=== PATIENT | female | born 1935 | race Caucasian/White ===

== ENCOUNTER → 2017-10-21 | Outpatient (CLI) | payer OTHER ==
[~2017-10-21] MED LIST: AMLO2.5T2 PO; ASPI-113 PO; CLTP PO; GLUCOSAMINE/CHOND PO; HYZ/10015 PO; LATA0.009 OPB; LRT5 PO; MELO7.5T7 PO; TRAZ50TA35 PO
--- NOTE | 2017-10-21 16:00 | DIAGNOSTIC IMAGING REPORT ---
MRI OF THE LUMBAR SPINE WITHOUT IV CONTRAST CLINICAL HISTORY: Acquired spondylolisthesis of the lumbar spine. Back pain with lower extremity radiculopathy. COMPARISON STUDY: No priors. TECHNIQUE: MRI of the lumbar spine is performed utilizing various T1 and T2-weighted sequences in the axial and sagittal planes. IV contrast was not administered for this examination. The examination is modestly degraded by motion artifact. FINDINGS: Lumbar spine: Vertebral body height is maintained throughout the lumbar spine. Marrow signal intensity is heterogeneous. There is 6 mm of anterolisthesis at L4-L5. Minimal anterolisthesis is seen at L3-L4. Alignment is otherwise preserved. There is mild hyperlordosis. The transverse and spinous processes appear intact. There is no evidence of spondylolysis. There is a small Schmorl's node in the superior endplate of L1 with minimal marrow edema. Tiny anterior osteophytes are seen throughout. No destructive bony lesion is identified. A small hemangioma is noted in the body of L3. Intervertebral discs: There is degenerative disc desiccation and loss of height throughout the lumbar spine. Loss of height is moderate at most levels. Spinal cord: The visualized spinal cord is normal in morphology and signal intensity. The conus medullaris terminates at the L1-L2 interspace. L1-L2: There is a tiny disc bulge, eccentric to the right. There is no significant acquired compromise of the central canal. The disc bulge may abut the transiting right nerve root. The neural foramina are patent. L2-L3: There is a small posterior disc bulge. There is no significant acquired compromise of the central canal. The neural foramina are patent. Facet arthropathy is of no consequence. L3-L4: There is posterior disc bulge with annular fissure, eccentric to the left. In conjunction with hypertrophy of the ligamentum flavum, there is mild to moderate central canal stenosis at this level with a minimum AP diameter of 7 mm. There is bilateral subarticular stenosis, left greater than right. The disc bulge likely abuts the exiting bilateral L3 and the transiting bilateral L4 nerve roots. Facet arthropathy causes mild bilateral neural foraminal stenosis. There is a right facet joint effusion at this level. L4-L5: There is minimal posterior disc bulge. In conjunction with anterolisthesis and hypertrophy of the ligamentum flavum, there is mild acquired compromise of the central canal at this level with a minimum AP diameter of 9 mm. There is bilateral subarticular stenosis. This likely impinges on the exiting bilateral L4 and the transiting bilateral L5 nerve roots. Facet arthropathy is of no consequence. The neural foramina are patent. L5-S1: There is minimal disc bulge with annular fissure. There is no significant acquired compromise of the central canal. The neural foramina are patent. The disc bulge may abut the transiting left S1 nerve root. Sacrum: The visualized sacrum is normal in morphology and signal intensity. Soft tissues: There is fatty atrophy of the paraspinous musculature. The visualized kidneys demonstrate cortical atrophy. No retroperitoneal lymphadenopathy is identified. IMPRESSION: 1. There is multilevel lumbosacral spondylosis with acquired compromise of the central canal at L3-L4 and L4-L5. See above discussion for detailed level by level analysis. 2. No destructive bony process is seen. 3. There is grade 1 anterolisthesis at L4-L5. Dictated: 10/21/2017 3:37 PM Transcribed: 10/21/2017 4:00 PM [email or web address] Electronically signed by: Terrence Ortiz M.D. 10/21/2017 4:03 PM Dictated Date/Time: 10/21/2017 3:37 PM
== END | disposition home or self-care (01) ==
LOC: C.MRI 14:30
PROVIDERS: ATTEND Family Medicine
DX: M43.17 Spondylolisthesis, lumbosacral region (principal)

== ENCOUNTER → 2018-01-28 | Outpatient (CLI) | payer OTHER ==
[2018-01-28 18:08] LABS: ALKALINE PHOSPHATASE 129 U/L (45-117); ALT/SGPT 117 U/L (12-78); AST/SGOT 92 U/L (15-37); BLOOD UREA NITROGEN 25 mg/dl (7-18); CALCIUM 9.7 mg/dl (8.5-10.1); CARBON DIOXIDE 28 mmol/L (21-32); CREATININE 1.03 mg/dl (0.60-1.20); GLUCOSE 94 mg/dl (70-99); POTASSIUM 3.9 mmol/L (3.5-5.1); SODIUM 139 mmol/L (136-145); TOTAL PROTEIN 7.3 gm/dl (6.4-8.2)
== END | disposition home or self-care (01) ==
LOC: C.LABMFLN 11:33
PROVIDERS: ATTEND Family Medicine
DX: I10 Essential (primary) hypertension (principal)

== ENCOUNTER 2020-10-31 09:16 | Inpatient (IN) ==
--- NOTE | 2020-10-04 15:22 | PAT Medication Instructions ---
Medication Instructions Date of Service October 04, 2020 Home Medications Medication Instructions Recorded alprazolam 0.25 mg tablet See Rx Instructions PO DAILY PRN 04/18/20 #10 tab pramipexole 0.125 mg tablet 0.125 mg PO QPM #90 tab 08/16/20 zolpidem 10 mg tablet 10 mg PO HS PRN #30 tab 09/15/20 alprazolam 0.25 mg tablet See Rx Instructions PO DAILY PRN buspirone 5 mg tablet 10 mg PO DAILY PRN turmeric root extract 500 mg capsule 500 mg PO QAM pramipexole 0.125 mg tablet 0.125 mg PO QPM zolpidem 10 mg tablet 10 mg PO HS PRN [place] Liquid Otc 1 tbsp PO HS acetaminophen [Tylenol Arthritis] 650 - 1,300 mg PO Q12H PRN amlodipine 2.5 mg PO HS cholecalciferol (vitamin D3) 1,000 units PO QPM duloxetine [Cymbalta] 20 mg PO QPM PRN losartan-hydrochlorothiazide 1 tab PO QAM tramadol 50 mg PO Q6H PRN STOP taking 2 weeks before surgery turmeric root extract 500 mg capsule 500 mg PO QAM DO NOT take the morning of surgery losartan-hydrochlorothiazide 1 tab PO QAM Take morning of surgery With a small sip of water, OTHERWISE NOTHING TO EAT OR DRINK AFTER MIDNIGHT: alprazolam 0.25 mg tablet See Rx Instructions PO DAILY PRN (if needed) buspirone 5 mg tablet 10 mg PO DAILY PRN (if needed) acetaminophen [Tylenol Arthritis] 650 - 1,300 mg PO Q12H PRN (okay to take up to 4 hours prior to surgery if needed) tramadol 50 mg PO Q6H PRN (okay to take up to 4 hours prior to surgery if needed) Take evening before surgery alprazolam 0.25 mg tablet See Rx Instructions PO DAILY PRN (if needed) buspirone 5 mg tablet 10 mg PO DAILY PRN (if needed) pramipexole 0.125 mg tablet 0.125 mg PO QPM zolpidem 10 mg tablet 10 mg PO HS PRN (if needed) [place] Liquid Otc 1 tbsp PO HS acetaminophen [Tylenol Arthritis] 650 - 1,300 mg PO Q12H PRN (if needed) amlodipine 2.5 mg PO HS cholecalciferol (vitamin D3) 1,000 units PO QPM duloxetine [Cymbalta] 20 mg PO QPM PRN (if needed) tramadol 50 mg PO Q6H PRN (if needed) Other Notes If you have any questions please call us at [phone] or [phone] or [phone] or [phone]
--- NOTE | 2020-10-05 13:52 | Anesthesiology Consultation ---
Date of Service October 05, 2020 Assessment & Plan (1) Encounter for pre-operative examination: Chart Review Chart Review: Acceptable Risk for Surgery (pending preop Covid testing results ) and Patient seen in Pre Admission Testing Left UE restriction Per PAT appt on 10/05/20, patient denies any recent traveling or large group activities. No known Covid positive contacts or Covid related symptoms. No known Covid infections in the past 90 days. Educated patient to follow up with surgeon's office regarding Covid testing- did educated patient preop Covid testing cannot be done more than 7 days prior to surgery. Educated on importance of self quarantining, social distancing and wearing mask in public both for the patient and household contacts. Teaching & Discussion Pre-Anesthesia Teaching/Discussion Notes: Instructed NPO after midnight before surgery,except medications with 15 cc of water. Medication instructions provided according to the PAT guidelines. History Surgery Operation Date: 10/31/20 11:00 Proposed Procedures p Left Anterior Total Hip Arthroplasty - Jordan Healy DO Height/Weight Height: 5 ft 1 in Weight: 68.2 kg Allergies Allergy/AdvReac Type Severity Reaction Status Date / Time niacinamide Allergy Unknown RASH Verified 10/06/20 12:50 pantothenic acid Allergy Unknown RASH Verified 10/06/20 12:50 pyridoxine Allergy Unknown RASH Verified 10/06/20 12:50 Ydgunor-Bvc-Aky Reductase Allergy Unknown RASH, Verified 10/06/20 12:50 Inhibitor MUSCLE ACHES KNEE INJECTIONS Allergy Unknown RASH Uncoded 10/06/20 12:50 vitamin b complex Allergy Unknown Rash Uncoded 10/06/20 12:50 Medications Home Medications Medication Instructions Recorded Confirmed Last Taken alprazolam 0.25 mg tablet See Rx Instructions PO DAILY PRN 04/18/20 10/06/20 Unknown #10 tab buspirone 5 mg tablet 10 mg PO DAILY PRN tab 04/18/20 10/06/20 Unknown turmeric root extract 500 mg 500 mg PO QAM 04/18/20 10/06/20 Unknown capsule pramipexole 0.125 mg tablet 0.125 mg PO QPM #90 tab 08/16/20 10/06/20 Unknown zolpidem 10 mg tablet 10 mg PO HS PRN #30 tab 09/15/20 10/06/20 Unknown [place] Liquid Otc 1 tbsp PO HS 09/29/20 10/06/20 Unknown acetaminophen [Tylenol Arthritis] 650 - 1,300 mg PO Q12H PRN 09/29/20 10/06/20 Unknown amlodipine 2.5 mg PO HS 09/29/20 10/06/20 Unknown cholecalciferol (vitamin D3) 1,000 units PO QPM 09/29/20 10/06/20 Unknown duloxetine [Cymbalta] 20 mg PO QPM PRN 09/29/20 10/06/20 Unknown losartan-hydrochlorothiazide 1 tab PO QAM 09/29/20 10/06/20 Unknown tramadol 50 mg PO Q6H PRN 09/29/20 10/06/20 Unknown Past Medical History Medical History Cancer HX LEFT BREAST - S/P LEFT BREAST LUMPECTOMY- 2000- S/P XRT, NO CHEMO DOES HAVE LEFT UE RESTRICTION Chronic back pain CKD (chronic kidney disease), stage III STABLE - FOLLOWS WITH NEPHRO ANNUALY Depression Hyperlipidemia NO MEDS-UNABLE TO TOLERATE STATINS Hypertension Osteoarthritis Restless legs STABLE Exercise / Class Metabolic Activity III < 4 Walking/Shop/Light housework (NO CHEST PAIN OR SOB WITH FLAT SURFACE AMBULATION ) Past Family History Family History Father FHx: kidney cancer Lung cancer Sister Family history of reaction to anesthesia PONV Uncle Family history of diabetes mellitus Other Hypertension Past Surgical History Surgical History H/O lumpectomy LEFT BREAST-RADIATION, NO CHEMO-2000 H/O thyroidectomy PARTIAL-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 History of carpal tunnel release History of cataract surgery History of colonoscopy History of hysterectomy History of knee replacement R/L History of repair of rectocele Nausea and vomiting after administration of anesthetic agent S/P dilation and curettage S/P wisdom tooth extraction Past Anesthesia History No Hx of Anesthesia Complications (WITH EXCEPTION TO PONV) and No Family Hx of Anesthesia Complications History of PONV History of PONV and Hx of Motion Sickness (IN BOATS ) Social History Smoking Status: Never smoker Do You Dip or Chew Tobacco: No Hx Alcohol Use: No Hx Substance Use: No Review of Systems Occ cough- secondary to post nasal drip- chronic and stable Patient denies chest pain, shortness of breath, dyspnea on exertion, reflux, wheezing, palpitations. No hx of seizures, stroke, NH, apnea/snoring. No hx of blood clots or blood transfusions Physical Exam Vital Signs VITALS BP 148/74 (manually) P 78 TEMP 97.9 SP02 98% RESP 16 Constitutional no acute distress ENMT Mouth: no TMJ clicking Thyromental Distance: > or= 3.5 Finger Breadths (3.5) Mallampati Class: III Partial plate on top Missing bottom molars Neck + limited neck extension (mild to moderate ) Respiratory normal respiratory effort; no respiratory distress Auscultation: lungs clear to auscultation bilaterally; no wheezes Cardiovascular Rate/Rhythm: regular rate and regular rhythm Heart Sounds: no murmur Vessels: no carotid bruit Musculoskeletal Spine: no pain with cervical ROM Extremities: extremities normal to inspection Psychiatric Orientation: alert Testing Laboratory Results 10/05/20 14:08 10/05/20 14:08 PT 10.1 Seconds (9.0-12.0) 10/05/20 14:08 INR 1.0 (0.9-1.1) 10/05/20 14:08 APTT 26.3 Seconds (21.0-31.0) 10/05/20 14:08 Hemoglobin A1c 5.9 % (4.5-5.6) H 10/05/20 14:08 Urine Color Yellow 10/05/20 14:08 Urine Appearance Clear (Clear) 10/05/20 14:08 Urine pH 5.0 (4.5-7.5) 10/05/20 14:08 Ur Specific [place] 1.016 (1.000-1.030) 10/05/20 14:08 Urine Protein Negative (Negative) 10/05/20 14:08 Urine Glucose (UA) Negative (Negative) 10/05/20 14:08 Urine Ketones Negative (Negative) 10/05/20 14:08 Urine Nitrite Negative (Negative) 10/05/20 14:08 Ur Leukocyte Esterase Negative (Negative) 10/05/20 14:08 Blood Type AB Negative 10/05/20 14:08 Antibody Screen NEGATIVE 10/05/20 14:08 Electrocardiogram Date: 10/05/20 Findings: + NSR @ (70bpm) Normal EKG per cardio. Chest X-Ray Date: 10/05/20 Findings: + NAD Stress Test Date: 06/04/16 Type: exercise (ECHO) Resting EF: 63% Resting LV Function: normal Resting RWMA: + none Valvular Disease: no significant valvular disease Exercise ECHO exam is normal without EKG or ECHO evidence of inducible ischemia. MPHR= 85%. 4.4 METS achieved. Resting ECHO shows Grade I diastolic dysfunction.
--- NOTE | 2020-10-05 14:48 | XRay Report ---
XR chest Pre-admission PA/Lat HISTORY: 85 years-old Female pat chronic degenerative joint disease COMPARISON: Chest radiographs 01/29/2012 TECHNIQUE: PA and lateral views of the chest FINDINGS: Cardiac mediastinal and hilar silhouettes are within normal limits. No pneumothorax, pleural effusion , airspace consolidation or overt pulmonary edema. Degenerative changes of the shoulders and spine. I sahil upper abdomen is unremarkable. IMPRESSION: No acute process. ACT 112: Negative or not required by law. The above report was generated using voice recognition software. It may contain grammatical, syntax o r spelling errors. Electronically signed by: Mike Rai M.D. 10/05/2020 2:46 PM
[2020-10-05 14:57] LABS: Basophils # (auto) 0.06 K/uL (0-0.2); Basophils % (auto) 0.7 %; Eosinophils # (auto) 0.16 K/uL (0-0.5); Hematocrit (blood only) 40.7 % (37-47); Immature Granulocytes # (auto) 0.01 K/uL (0.00-0.02); Immature Granulocytes % (auto) 0.1 %; Lymphocytes # (auto) 1.73 K/uL (1.2-3.4); Lymphocytes % (auto) 21.6 %; Mean Corpuscular Hemoglobin 30.7 pg (25-34); Mean Corpuscular Hgb Conc 31.9 g/dL (32-36); Mean Corpuscular Volume 96.2 fL (80-100); Mean Platelet Volume 10.5 fL (7.4-10.4); Monocytes # (auto) 0.47 K/uL (0.11-0.59); Monocytes % (auto) 5.9 %; Neutrophils # (auto) 5.58 K/uL (1.4-6.5); Neutrophils % (auto) 69.7 %; Platelet Count 345 K/uL (130-400); RDW Coefficient of Variation 13.1 % (11.5-14.5); RDW Standard Deviation 45.8 fL (36.4-46.3); Red Blood Count 4.23 M/uL (4.2-5.4); White Blood Count 8.01 K/uL (4.8-10.8)
[2020-10-05 15:12] LABS: Partial Thromboplastin Time 26.3 Seconds (21.0-31.0); Prothrombin Time 10.1 Seconds (9.0-12.0)
[2020-10-05 15:15] LABS: Appearance Urine Clear (Clear); Bilirubin Urine Negative (Negative); Blood Urine Negative (Negative); Color Urine Yellow; Glucose Urine UA Negative (Negative); Ketones Urine Negative (Negative); Leukocyte Esterase Urine Negative (Negative); Nitrite Urine Negative (Negative); Protein Urine Negative (Negative); Specific Gravity Urine 1.016 (1.000-1.030); Urobilinogen Urine Negative (Negative)
[2020-10-05 16:11] LABS: Albumin Level 3.9 gm/dl (3.4-5.0); BUN Creatinine Ratio 26.5 (10-20); Creatinine Clr Calc Pharmacy 38.8 ml/min; Est GFR (African American) 62.6; Potassium 3.7 mmol/L (3.5-5.1)
[2020-10-06 05:46] LABS: Estimated Average Glucose 123 mg/dl; Hemoglobin A1C 5.9 % (4.5-5.6)
--- NOTE | 2020-10-06 22:11 | Electrocardiogram Report ---
Test Reason : Blood Pressure : / mmHG Vent. Rate : 070 BPM Atrial Rate : 070 BPM P-R Int : 192 ms QRS Dur : 086 ms QT Int : 398 ms P-R-T Axes : 067 067 046 degrees QTc Int : 429 ms Normal sinus rhythm Normal ECG When compared with ECG of 29-JAN-2012 12:32, No significant change was found Confirmed by Lv Maldonado ([id number]) on 10/06/2020 10:10:23 PM Referred By: Jordan Healy Confirmed By:Lv Maldonado
--- NOTE | 2020-10-28 21:33 | History & Physical Report ---
Date of Service October 31, 2020 Assessment & Plan (1) Degenerative joint disease of left hip: I have indicated the patient for left total hip replacement. The risks, benefits and complications of surgery were explained to the patient which include but not limited to infection, acute blood loss, DVT/PE, injury to nerves, vessels, bone, soft tissue, arthrofibrosis, chronic pain, failure of the prosthesis, hip dislocation, leg length discrepancy, need for additional surgery, cardiac and pulmonary events and . The patient wished to proceed with surgery and informed consent was obtained at this time. We will plan for 81mg ASA BID post-operatively for DVT prophylaxis. Upon discharge the patient will be discharged home with home health services. Appropriate clearances by PCP were obtained. History of Present Illness Chief Complaint: Left hip pain/DJD Primary Care Provider: Joseluis Garner DO The patient is a 85 year old female who presents with complaints of severe left hip pain and DJD. The patient has failed outpatient conservative treatments to this point which included IA corticosteroid injection, activity modification, ho me exercise/walking program. Unable to take NSAIDs due to CKD. The patient's pain and limited function have progressed to the point where they severely hinder their activities of daily living and they no longer tolerate exercise programs. They are requesting to proceed with total hip replacement surgery. Allergies Allergy/AdvReac Type Severity Reaction Status Date / Time niacinamide Allergy Unknown RASH Verified 10/31/20 09:46 pantothenic acid Allergy Unknown RASH Verified 10/31/20 09:46 pyridoxine Allergy Unknown RASH Verified 10/31/20 09:46 Ojqckgk-Vfr-Eyc Reductase Allergy Unknown RASH, Verified 10/31/20 09:46 Inhibitor MUSCLE ACHES KNEE INJECTIONS Allergy Unknown RASH Uncoded 10/31/20 09:46 vitamin b complex Allergy Unknown Rash Uncoded 10/31/20 09:46 Home Medications Medication Instructions Recorded Confirmed Type alprazolam 0.25 mg tablet See Rx Instructions PO DAILY PRN 04/18/20 10/31/20 Rx #10 tab buspirone 5 mg tablet 10 mg PO DAILY PRN tab 04/18/20 10/31/20 History turmeric root extract 500 mg 500 mg PO QAM 04/18/20 10/31/20 History capsule pramipexole 0.125 mg tablet 0.125 mg PO QPM #90 tab 08/16/20 10/31/20 Rx zolpidem 10 mg tablet 10 mg PO HS PRN #30 tab 09/15/20 10/31/20 Rx [place] Liquid Otc 1 tbsp PO HS 09/29/20 10/31/20 History acetaminophen [Tylenol Arthritis] 650 - 1,300 mg PO Q12H PRN 09/29/20 10/31/20 History amlodipine 2.5 mg PO HS 09/29/20 10/31/20 History cholecalciferol (vitamin D3) 1,000 units PO QPM 09/29/20 10/31/20 History duloxetine [Cymbalta] 20 mg PO QPM PRN 09/29/20 10/31/20 History losartan-hydrochlorothiazide 1 tab PO QAM 09/29/20 10/31/20 History tramadol 50 mg PO Q6H PRN 09/29/20 10/31/20 History diclofenac sodium 1 % topical gel 2 g TOPICAL QID 10/13/20 10/31/20 History camphor-methyl salicyl-menthol 1 patch TOPICAL BID PRN 10/31/20 10/31/20 History [Salonpas] Past Med/Surg History Medical History Cancer HX LEFT BREAST - S/P LEFT BREAST LUMPECTOMY- 2000- S/P XRT, NO CHEMO DOES HAVE LEFT UE RESTRICTION Chronic back pain Chronic kidney disease, stage 3a CKD (chronic kidney disease), stage III STABLE - FOLLOWS WITH NEPHRO ANNUALY Depression Hyperlipidemia NO MEDS-UNABLE TO TOLERATE STATINS Hypertension Osteoarthritis Restless legs STABLE Surgical History H/O lumpectomy LEFT BREAST-RADIATION, NO CHEMO-2000 H/O thyroidectomy PARTIAL-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 History of carpal tunnel release History of cataract surgery History of colonoscopy History of hysterectomy History of knee replacement R/L History of repair of rectocele Nausea and vomiting after administration of anesthetic agent S/P dilation and curettage S/P wisdom tooth extraction Family History Father FHx: kidney cancer Lung cancer Sister Family history of reaction to anesthesia PONV Uncle Family history of diabetes mellitus Other Hypertension Social History Smoking Status: Never smoker Second Hand Exposure: No; Do You Dip or Chew Tobacco: No; Hx Alcohol Use: No Hx Substance Use: No Preferred Language: Russian Communication Ability: Effective Architecture Technician Required: No Beliefs That Will Affect Care: None marital status: Current Living Situation: Spouse current occupational status: retired Other Information That Helps Us Care for You: No Feels Safe at Home: Yes Safety Concerns: Feels Safe At This Time Childhood Exposure to Second-Hand Smoke: No caffeine: Yes (coffee, tea ) Dental Care, Regularly: Yes Physical Activity Frequency: Daily Seatbelt Use: always Assistive Devices: Denture - Upper, Glasses and Walker Review of Systems Review of Systems: All systems reviewed & are unremarkable except as noted in HPI & below Constitutional: as per Subjective / HPI Physical Exam Physical Exam: LLE NVSI +EHL/FHL/TA/GS SILT grossly, +2 DP pulse, compartments soft NT, limited painful ROM of the hip, antalgic gait. Constitutional: WD/WN, vitals as above Eyes: PERRL, conjunctivae normal, anicteric sclerae ENMT: external ear and nose normal, oropharynx normal Neck: trachea midline, no thyromegaly Respiratory: normal respiratory effort, lungs clear to auscultation Cardiovascular: RRR, no murmur, no edema Gastrointestinal (Abdomen): normal bowel sounds, soft, nontender, no he patosplenomegaly Musculoskeletal: no cyanosis or clubbing, extremities motor strength 5/5 Skin: no rashes, warm and dry Neurologic: patellar DTR's 2+ bilat, sensation intact Psychiatric: A+Ox3, euthymic affect Lymphatic: no cervical or axillary lymphadenopathy
[~2020-10-31 09:16] MED LIST changes: +ACETAMINOPHEN 500 MG TAB PO SCH; -AMLO2.5T2 PO; -ASPI-113 PO; +BUPIVACAINE 0.5 % 5 MG/1 ML PF 10ML VIAL ONE; -CLTP PO; +CeleBREX 200 MG CAP PO SCH; +FAMOTIDINE 20 MG TAB PO SCH; +GABAPENTIN 300 MG CAP PO SCH; -GLUCOSAMINE/CHOND PO; -HYZ/10015 PO; -LATA0.009 OPB; +LR 500ML BOLUS, THEN 15ML/HR IV SCH; -LRT5 PO; -MELO7.5T7 PO; +METOCLOPRAMIDE HCL 10 MG TABLET PO SCH; +ROPIVACAINE 0.5% HCL/PF 150 MG, BUPIVACAINE 0.75% MPF 20 ML, EPINEPHrine 30MG/30ML (OR ... INSTIL SCH; +TRANEXAMIC ACID 1,000 MG **IV Intra-op IV SCH; +TRANEXAMIC ACID 1,000 MG **IV Pre-op IV SCH; -TRAZ50TA35 PO; +dexAMETHasone 4 MG TAB PO SCH
[2020-10-31] MEDS ORDERED: PROPOFOL IV EMULSION 10 MG/ML 20 ML VIAL IV ONE (10:20)
[2020-10-31] MEDS ORDERED: fentaNYL citrate 100 MCG/2 ML VIAL ONE (10:20)
[2020-10-31] MEDS ORDERED: MIDAZOLAM HCL 1 MG/ML 2ML VIAL ONE (10:20)
--- NOTE | 2020-10-31 11:32 | History & Physical Bridge Note ---
Date of Service October 31, 2020 History & Physical Bridge Note I have examined the patient, reviewed the History & Physical and in the interval since the performance of the History & Physical I have noted the following changes of clinical significance: no changes noted
[2020-10-31] MEDS ORDERED: ORTHO JOINT ANESTHETIC ONE (11:39)
[2020-10-31] MEDS: ceFAZolin 1000MG 1,000 MG/7.5 ML SYR IV SCH ×3 (12:04→21:04)
--- NOTE | 2020-10-31 13:28 | Post Operative Brief Note ---
Immediate Post Op Note v1 Date of Surgery October 31, 2020 Pre & Post Diagnosis Operation Date: 10/31/20 11:40 Pre-Op Diagnosis: Degenerative joint disease of left hip Post-Op Diagnosis: Degenerative joint disease of left hip I identified the patient and participated in the time-out.: Yes Procedure Operation Date: 10/31/20 11:40 Actual Procedures p Left Total Hip Arthroplasty, Posterior Approach(Left) - Jordan Healy DO Surgeon Jordan Healy DO Incinerator Operator Stef Johnson Estimated Blood Loss 175 Findings Consistent with Post-Op Diagnosis Fluids See anesthesia report Specimens Femoral head Anesthesia Type Spinal MAC Complications none Disposition Disposition: Recovery Room Overlapping Procedure I was present for: the critical portions of procedure. I was immediately available: during the entire case. Back up surgeon: was not required during procedure.
--- NOTE | 2020-10-31 13:30 | Operative Report ---
Post Operative Report Pre & Post Diagnosis Operation Date: 10/31/20 11:40 Pre-Op Diagnosis: Degenerative joint disease of left hip Post-Op Diagnosis: Degenerative joint disease of left hip I identified the patient and participated in the time-out.: Yes Procedure Operation Date: 10/31/20 11:40 Actual Procedures p Left Total Hip Arthroplasty, Posterior Approach(Left) - Jordan Healy DO Surgeon Jordan Healy DO Senior Financial Accountant Stef Johnson Estimated Blood Loss 175 Findings Consistent with Post-Op Diagnosis Fluids See anesthesia report Specimens Femoral head Anesthesia Type Spinal MAC Complications none Disposition Disposition: Recovery Room Indications The patient is a 85-year-old female who presents with severe progressive left hip DJD who has failed outpatient conservative treatments. I indicated the patient for a total hip replacement and the risks and benefits were explained in detail which included but not limited to infection, bleeding, blood clot, damage to surrounding bone, nerves, vessels, soft tissue, hip dislocation, failure of the prosthesis, leg length discrepancy, need for additional surgery and . The patient agreed to proceed with replacement of the hip and informed consent was obtained. Appropriate clearances were obtained. Description of Procedure COMPONENTS USED: Goldie bio hip system: Acetabulum size 50 osteo-Ti G7, femur size 10 standard reduced offset, femoral head 36-3.5, liner 50x36, acetabular screw 25 mm x 1. Following induction of adequate spinal anesthesia, the patient was transferred to the OR table and placed in lateral decubitus position with right hip down. The left hip was prepped and draped in the typical sterile fashion. A timeout was performed, patient identified and site bre confirmed. Appropriate antibiotics were given. A standard posterolateral/Jacobo-Langenbeck incision was made. Subcutaneous tissue was sharply dissected. Electrocautery was utilized for hemostasis. The fascia was incised throughout the length of the wound and retracted with the Charnley retractor. The bursa was taken down and the short external rotators were identified. The piriformis was tagged with #1 Vicryl. The short external rotators and capsule were divided from the posterior aspect of the femur using electrocautery. The posterior capsule was tagged with #1 Vicryl. Both external rotators and posterior capsule were swept posterior and protected, along with protecting the sciatic nerve. The hip was dislocated by flexion and internally rotation in a controlled manner and exposure of the femoral neck was gained with an old-style Hohmann and a blunt cobra retractor. A femoral cutting guide was utilized for making the appropriate level femoral ne ck cut with reciprocating saw. The femoral head was removed, measured and reserved on the back table. Next, attention was turned to the acetabulum. A posterior and anterior offset retractor was placed to gain adequate exposure. Acetabular labrum as well as posterior capsule elements were removed using electrocautery and forceps. Fovea centralis was cleared of all soft tissue. Sequential reaming was performed starting at 42 mm and carried up to a 49 mm and decision was made to proceed with impaction of a 50 mm G7 Osteo-Ti cup. This was impacted and held using a single 25 mm acetabular screw. The trial acetabular liner was placed at this time. Next, attention was turned to the proximal femur where a Bovie and pickup was used to further clear short external rotators from their insertion on the femur. Box osteotome and canal finder was used to gain access to the femoral canal and the lateral reamer on power was used to further open the proximal lateral canal. Sequentially rasping was carried up to a 10 which gave good fit and fill of the proximal femur. A trial reduction was carried out with a standard reduced offset femoral neck component a 36-3.5 mm femoral head. The trial reduction was stable in all degrees of rotation with no [id number] impingement. The hip was dislocated, trial components were removed and access to the acetabulum was re-established. The trial liner was removed and the cup was irrigated to ensure all debris was removed. The final acetabular liner was inserted and properly seated in the cup. Access to the femur was once more gained and the size 10 femoral stem with standard reduced offset was impacted into position. The hip was once more assessed with the 36-3.5 mm femoral head. Stability was accessed and found to be excellent with equal leg lengths. The hip was dislocated for the last time and the final 36-3.5 ceramic femoral head was impacted in place and the hip was reduced. Range of motion was checked once again and found to be stable. A Betadine soak was performed. After 3 minutes, the hip was once more irrigated with copious sterile saline solution with bacitracin. The johana-incisional soft tissue was injected utilizing [place] ortho mix which includes a combination of Ropivicaine 0.5% 150mg, Bupivicaine 0.5%/Epinephrine 1:200,000 30ml, Toradol 30mg, Dexamethasone 4mg, Ketamine 10mg, Clonidine 100mcg and NSS 30ml Orthomix solution. The piriformis, external rotators and capsule were repaired to the greater trochanter through bone tunnels using #5 FiberWire. The fascia was closed using #1 Vicryl, subcutaneous tissue was closed using 2-0 Vicryl, and skin was closed with iván. A sterile dry dressing was applied which included gema incisional VAC. The patient tolerated the procedure well and was transported to PACU in stable condition. Due to the complex nature of the procedure, the entire surgery was performed with the operational assistance of Stef Johnson PA-C. The addictions counselor assistant, under direct supervision, was involved in the actual performance of all aspects of the surgical procedure including patient positioning, hemostasis, tissue retraction, instrument management and wound closure. I attest to the content of the Intraoperative Record and any orders documented therein. Any exceptions are noted below.
[2020-10-31] MEDS ORDERED: ePHEDrine sulfate 50 MG/ML AMP IV PRN (14:07)
[2020-10-31] MEDS ORDERED: ATROPINE SULFATE 0.1 MG/ML 10ML SYR IV PRN (14:07)
--- NOTE | 2020-10-31 14:23 | XRay Report ---
XR hip 1V LT w pelvis HISTORY: 85 years-old Female IN PACU - A/P PELVIS and LATERAL HIP left hip total joint arthroplasty COMPARISON: None TECHNIQUE: AP view of the pelvis with crosstable lateral view of the left hip FINDINGS: Moderate right hip osteoarthritis. Left hip total joint arthroplasty. Expected postoperative soft tis emmy swelling with deep tissue air lateral skin iván. No acute fracture or unexpected opaque foreig n body. IMPRESSION: Left hip total joint arthroplasty with expected postoperative changes. ACT 112: Negative or not required by law. The above report was generated using voice recognition software. It may contain grammatical, syntax o r spelling errors. Electronically signed by: Amado Rai M.D. 10/31/2020 2:22 PM
--- NOTE | 2020-10-31 16:12 | Anesthesiology Progress Note ---
Date of Service October 31, 2020 Anesthesia Post Procedure Vital Signs Vital Signs: Temp Pulse Pulse Resp BP BP Pulse Ox 10/31/20 16:00 74 24 135/63 95 10/31/20 15:50 36.4 C L 75 20 136/63 96 10/31/20 15:40 72 20 140/60 95 10/31/20 15:30 35.5 C L 65 16 137/69 96 10/31/20 15:20 65 16 137/66 96 10/31/20 15:10 68 20 139/78 97 10/31/20 15:00 66 20 127/64 95 10/31/20 14:50 74 20 143/64 H 95 10/31/20 14:40 75 18 139/79 96 10/31/20 14:30 71 20 141/61 H 97 10/31/20 14:20 70 16 142/61 H 98 10/31/20 14:10 67 14 139/63 98 10/31/20 14:00 71 16 126/66 100 10/31/20 13:55 75 19 137/58 L 100 10/31/20 13:49 36.0 C L 74 14 120/59 L 97 10/31/20 10:02 36.6 C 92 H 20 143/74 H 99 Transfer of Care Handoff Completed per policy Notes Mental Status: alert / awake / arousable Patient Amnestic to Procedure: Yes Nausea / Vomiting: adequately controlled Pain: adequately controlled Airway Patency, RR, SpO2: stable & adequate BP & HR: stable & adequate Hydration State: stable & adequate Neuraxial Anesthesia: was administered and sensory block is resolving Anesthetic Complications: no major complications apparent
--- NOTE | 2020-10-31 16:55 | Orthopedic Progress Note ---
Date of Service October 31, 2020 Assessment & Plan (1) Degenerative joint disease of left hip: Status post left total hip arthroplasty -Ancef x24 -DVT prophylaxis: SCDs, teds, 81 mg ASA twice daily -Weight-bear as tolerates left lower extremity -PT/OT -Postoperative x-ray demonstrates a well aligned well fixed prosthesis without fracture or dislocation. -A.m. labs -DC plan Admission and Anticipated Discharge Date Admission Date: October 31, 2020 Subjective Post Operative Progress Note Patient seen sitting up in bed, comfortable, denies complaints, pain well controlled, no acute issues. Review of Systems Review of Systems: All systems reviewed & are unremarkable except as noted in HPI & below Constitutional: as per Subjective / HPI Physical Exam Physical Exam: LLE NVSI +EHL/FHL/TA/GS SILT grossly, +2 DP pulse, compartments soft NT, dressing cdi. Results & Data ([facility]) Vital Signs (Past 12 Hours) Vital Signs Temp Pulse Pulse Resp BP BP Pulse Ox 10/31/20 16:00 74 24 135/63 95 10/31/20 15:50 36.4 C L 75 20 136/63 96 10/31/20 15:40 72 20 140/60 95 10/31/20 15:30 35.5 C L 65 16 137/69 96 10/31/20 15:20 65 16 137/66 96 10/31/20 15:10 68 20 139/78 97 10/31/20 15:00 66 20 127/64 95 10/31/20 14:50 74 20 143/64 H 95 10/31/20 14:40 75 18 139/79 96 10/31/20 14:30 71 20 141/61 H 97 10/31/20 14:20 70 16 142/61 H 98 10/31/20 14:10 67 14 139/63 98 10/31/20 14:00 71 16 126/66 100 10/31/20 13:55 75 19 137/58 L 100 10/31/20 13:49 36.0 C L 74 14 120/59 L 97 10/31/20 10:02 36.6 C 92 H 20 143/74 H 99
[2020-10-31] MEDS ORDERED: METOCLOPRAMIDE HCL INJ 5 MG/ML 2 ML VIAL IV PRN (17:11)
[2020-10-31] MEDS ORDERED: ONDANSETRON INJ 2 MG/ML 2 ML VIAL IV PRN (17:11)
[2020-10-31] MEDS ORDERED: busPIRone 5 MG TAB PO PRN (17:11)
[2020-10-31] MEDS ORDERED: MAGNESIUM HYDROXIDE SUSP 30 ML UDC PO PRN (17:11)
[2020-10-31] MEDS ORDERED: bisacodyL 10 MG SUPP PR PRN (17:11)
[2020-10-31] MEDS ORDERED: NALOXONE HCL 0.4 MG/1 ML VIAL/CARP IV PRN (17:11)
[2020-10-31] MEDS ORDERED: ZOLPIDEM TARTRATE 10 MG TAB PO PRN (17:11)
[2020-10-31] MEDS ORDERED: HYDROmorphone INJ 0.5 MG/0.5 ML SYR IV PRN (17:11)
[2020-10-31] MEDS: SODIUM CHLORIDE 0.9% 1000ML 1,000 ML IV SCH (18:45)
[2020-10-31] MEDS ORDERED: PRAMIPEXOLE DIHYDROCHLO 0.25 MG TAB PO SCH (19:00)
[2020-10-31] MEDS: DOCUSATE SODIUM 100 MG CAP PO SCH (20:16)
[2020-10-31] MEDS ORDERED: SENNA 8.6 MG TAB PO SCH (21:00)
[2020-10-31] MEDS ORDERED: amLODIPine BESYLATE 5 MG TAB PO SCH (21:00)
[2020-10-31] MEDS: HYDROCODONE/ACETAMOPHEN 5/325MG TAB PO PRN (22:23)
[2020-11-01] MEDS: SODIUM CHLORIDE 0.9% 1000ML 1,000 ML IV SCH (04:35)
[2020-11-01] MEDS: ceFAZolin 1000MG 1,000 MG/7.5 ML SYR IV SCH (04:35)
[2020-11-01 06:33] LABS: Hematocrit (blood only) 33.4 % (37-47); Immature Granulocytes # (auto) 0.02 K/uL (0.00-0.02); Immature Granulocytes % (auto) 0.2 %; Lymphocytes % (auto) 6.5 %; Mean Corpuscular Hemoglobin 31.3 pg (25-34); Mean Corpuscular Hgb Conc 32.9 g/dL (32-36); Mean Corpuscular Volume 95.2 fL (80-100); Mean Platelet Volume 10.1 fL (7.4-10.4); Monocytes # (auto) 0.73 K/uL (0.11-0.59); Monocytes % (auto) 6.8 %; Neutrophils # (auto) 9.27 K/uL (1.4-6.5); Neutrophils % (auto) 86.5 %; Platelet Count 303 K/uL (130-400); RDW Coefficient of Variation 13.2 % (11.5-14.5); RDW Standard Deviation 45.8 fL (36.4-46.3); Red Blood Count 3.51 M/uL (4.2-5.4); White Blood Count 10.72 K/uL (4.8-10.8)
[2020-11-01 07:11] LABS: BUN Creatinine Ratio 30.3 (10-20); Calcium 8.7 mg/dl (8.5-10.1); Est GFR (African American) 43.9; Est GFR (Non-African American) 37.9; Potassium 3.9 mmol/L (3.5-5.1)
[2020-11-01] MEDS: DOCUSATE SODIUM 100 MG CAP PO SCH (08:10)
[2020-11-01] MEDS ORDERED: MULTIVITAMIN TAB PO SCH (09:00)
[2020-11-01] MEDS ORDERED: LOSARTAN/HCTZ 50/12.5MG TAB PO SCH (09:00)
[2020-11-01] MEDS ORDERED: ASPIRIN 81 MG ECTAB PO SCH (09:00)
--- NOTE | 2020-11-01 09:34 | Orthopedic Progress Note ---
Date of Service November 01, 2020 Assessment & Plan (1) Degenerative joint disease of left hip: Status post left total hip arthroplasty POD#1 -Ancef x24 -DVT prophylaxis: SCDs, teds, 81 mg ASA twice daily -Weight-bear as tolerates left lower extremity -PT/OT -Postoperative x-ray demonstrates a well aligned well fixed prosthesis without fracture or dislocation. -A.m. labs - as above, hgb 11.0 -DC plan - home with Admission and Anticipated Discharge Date Admission Date: October 31, 2020 Subjective Post Operative Progress Note Patient seen sitting up in bed, comfortable, denies complaints, pain well controlled, no acute issues. Denies F/C/N/V/SOB/CP. Review of Systems Review of Systems: All systems reviewed & are unremarkable except as noted in HPI & below Constitutional: as per Subjective / HPI Physical Exam Physical Exam: LLE NVSI +EHL/FHL/TA/GS SILT grossly, +2 DP pulse, compartments soft NT, dressing cdi. Constitutional: WD/WN, vitals as above Results & Data ([facility]) Vital Signs (Past 12 Hours) Vital Signs Temp Pulse Resp BP Pulse Ox 11/01/20 07:14 36.6 C 74 16 118/67 98 11/01/20 03:59 36.4 C L 66 16 127/75 98 10/31/20 22:57 36.9 C 70 16 122/77 97 Laboratory Results 11/01/20 11/01/20 10/31/20 Range/Units 05:59 05:59 Unknown WBC 10.72 (4.8-10.8) K/uL RBC 3.51 L (4.2-5.4) M/uL Hgb 11.0 L (12.0-16.0) g/dL Hct 33.4 L (37-47) % MCV 95.2 (80-100) fL MCH 31.3 (25-34) pg MCHC 32.9 (32-36) g/dL RDW Std Deviation 45.8 (36.4-46.3) fL RDW Coeff of Nicolasa 13.2 (11.5-14.5) % Plt Count 303 (130-400) K/uL MPV 10.1 (7.4-10.4) fL Immature Gran % (Auto) 0.2 % Neut % (Auto) 86.5 % Lymph % (Auto) 6.5 % [place] % (Auto) 6.8 % Eos % (Auto) 0.0 % Baso % (Auto) 0.0 % Neut # (Auto) 9.27 H (1.4-6.5) K/uL Lymph # (Auto) 0.70 L (1.2-3.4) K/uL [place] # (Auto) 0.73 H (0.11-0.59) K/uL Eos # (Auto) 0.00 (0-0.5) K/uL Baso # (Auto) 0.00 (0-0.2) K/uL Immature Gran # (Auto) 0.02 (0.00-0.02) K/uL Sodium 141 (136-145) mmol/L Potassium 3.9 (3.5-5.1) mmol/L Chloride 110 H (98-107) mmol/L Carbon Dioxide 23 (21-32) mmol/L Anion Gap 8.0 (3-11) BUN 39 H (7-18) mg/dl Creatinine 1.30 H (0.6-1.2) mg/dl Est Cr Clr Drug Dosing 29.0 ml/min Est GFR ( Amer) 43.9 Est GFR (Non-Af Amer) 37.9 BUN/Creatinine Ratio 30.3 H (10-20) Glucose 132 H (70-99) mg/dl Calcium 8.7 (8.5-10.1) mg/dl COVID-19 Eval Order SARS-CoV-2, RNA, NAAT NEGATIVE (NEGATIVE) 10/31/20 Range/Units Unknown WBC (4.8-10.8) K/uL RBC (4.2-5.4) M/uL Hgb (12.0-16.0) g/dL Hct (37-47) % MCV (80-100) fL MCH (25-34) pg MCHC (32-36) g/dL RDW Std Deviation (36.4-46.3) fL RDW Coeff of Nicolasa (11.5-14.5) % Plt Count (130-400) K/uL MPV (7.4-10.4) fL Immature Gran % (Auto) % Neut % (Auto) % Lymph % (Auto) % [place] % (Auto) % Eos % (Auto) % Baso % (Auto) % Neut # (Auto) (1.4-6.5) K/uL Lymph # (Auto) (1.2-3.4) K/uL [place] # (Auto) (0.11-0.59) K/uL Eos # (Auto) (0-0.5) K/uL Baso # (Auto) (0-0.2) K/uL Immature Gran # (Auto) (0.00-0.02) K/uL Sodium (136-145) mmol/L Potassium (3.5-5.1) mmol/L Chloride (98-107) mmol/L Carbon Dioxide (21-32) mmol/L Anion Gap (3-11) BUN (7-18) mg/dl Creatinine (0.6-1.2) mg/dl Est Cr Clr Drug Dosing ml/min Est GFR ( Amer) Est GFR (Non-Af Amer) BUN/Creatinine Ratio (10-20) Glucose (70-99) mg/dl Calcium (8.5-10.1) mg/dl COVID-19 Eval [facility], RNA, NAAT (NEGATIVE)
[2020-11-01] MEDS: HYDROCODONE/ACETAMOPHEN 5/325MG TAB PO PRN (09:37)
--- NOTE | 2020-11-02 17:37 | Discharge Summary ---
Date of Service November 02, 2020 Admission HPI Per Admitting Provider The patient is a 85 year old female who presents with complaints of severe left hip pain and DJD. The patient has failed outpatient conservative treatments to this point which included IA corticosteroid injection, activity modification, home exercise/walking program. Unable to take NSAIDs due to CKD. The patient's pain and limited function have progressed to the point where they severely hinder their activities of daily living and they no longer tolerate exercise programs. They are requesting to proceed with total hip replacement surgery. Principal Diagnosis Left total hip replacement Discharge Exam LLE NVSI +EHL/FHL/TA/GS SILT grossly, +2 DP pulse, compartments soft NT, dressing cdi. Constitutional WD/WN, vitals as above Discharge Data Allergies Allergy/AdvReac Type Severity Reaction Status Date / Time niacinamide Allergy Unknown RASH Verified 10/31/20 09:46 pantothenic acid Allergy Unknown RASH Verified 10/31/20 09:46 pyridoxine Allergy Unknown RASH Verified 10/31/20 09:46 Growuja-Ekb-Cxc Reductase Allergy Unknown RASH, Verified 10/31/20 09:46 Inhibitor MUSCLE ACHES KNEE INJECTIONS Allergy Unknown RASH Uncoded 10/31/20 09:46 vitamin b complex Allergy Unknown Rash Uncoded 10/31/20 09:46 Procedures Performed Operation Date: 10/31/20 11:40 Actual Procedures p Left Total Hip Arthroplasty, Posterior Approach(Left) - Jordan Healy DO Hospital Course (1) Degenerative joint disease of left hip: The patient is a 85 -year-old female who presents with long standing history of severe left hip DJD and failed outpatient conservative treatments. The patient's symptoms have progressed to the point where it has been difficult to perform even normal activities of daily living. I indicated the patient for a left total hip arthroplasty, the risks, benefits and complications of the procedure include but not limited to infection, bleeding, damage to bone, nerves, vessels, surrounding soft tissue, may develop blood clots, loss of function, leg length discrepancy, dislocation, failure of the components, loosening of the components, the need for additional surgery and . The patient wished to proceed with surgery at this time and informed consent was obtained. Hospital Course: On 10/31/20 the patient was taken to the operating room, adequate anesthesia administered and underwent a left total hip arthroplasty. The patient tolerated the procedure well and was taken to the PACU in stable condition. Post- operatively the patient was started on a DVT ppx medication and given appropriate IV antibiotics. Consults were placed to physical therapy, occupational therapy and case management. On POD#1, the patient did well overnight and their pain was well controlled. Labs were drawn and the Hgb was 11.0. The patient progressed well with PT. Dressings were changed at this time and the incision was clean, dry and intact. The patients hospital stay was relatively uneventful and they were deemed stable by the orthopedic team and consultants to be discharged home with HH on 11/01/20. Discharge Instructions: Upon discharge the patient may weight bear as tolerates through their operative extremity. They were instructed to keep the incision clean and dry at all times. The patient may shower but should not submerge the incision, avoid bathing, pools and hot tubs. The patient was given a script for pain medication and should take as instructed. The patient was given a script for DVT ppx 81mg ASA BID and should take as directed. The patient was instructed to not drive or travel for long distances until cleared to do so. If the patient develops any symptoms of fevers, chills, nausea, vomiting, increased redness, swelling, pain or drainage from the surgical site, they should notify the office and/or proceed to the nearest emergency room. The patient should follow up in 10-14 days after surgery for their routine post-operative follow-up appointment and should call the office, to confirm the date and time. Status post left total hip arthroplasty POD#1 -Ancef x24 -DVT prophylaxis: SCDs, teds, 81 mg ASA twice daily -Weight-bear as tolerates left lower extremity -PT/OT -Postoperative x-ray demonstrates a well aligned well fixed prosthesis without fracture or dislocation. -A.m. labs - as above, hgb 11.0 -DC plan - home with HH Total Time Total Time Spent Total Time Spent (In Minutes): 30 Discharge Plan Discharge Items Patient Disposition: Home - Home Health Services Reason For Visit: Unilateral Primary Osteoarthritis, Left Hip Discharge Diagnosis: Left total hip replacement Condition on Discharge: Good Activity: Per Instructions section Lifting: Wait until after follow-up appointment Bathing: Keep incision dry Bathing Comment: No bathing, pools or hot tubs. Sexual Activity: Wait until after follow-up appointment Exercise/Sports: Wait until after follow-up appointment Driving/Machine Use: No driving. Weightbearing: Full weightbearing Non-emergency contact: Primary Care Provider and Surgeon Call non-emergency contact if: you have any medication questions, your symptoms worsen, your pain is not controlled, your pain is worsening, your pain is unusual for you, your pain is concerning for you, you have a fever, your temperature is above 101, your wound has increased redness, your wound has increased drainage and your wound pain has increased Follow-up/Referrals: Joseluis Garner DO [Primary Care Provider] - Diet: Regular Addtl Attending Provider Instructions: ACTIVITY RECOMMENDATIONS: SELF CARE INSTRUCTIONS AFTER TOTAL HIP REPLACEMENT Until the incision and soft tissues around your hip have healed, there is a possibility that the hip prosthesis could dislocate. A. Observe the following precautions to prevent dislocation: 1. Don't bend your hip greater than 90 degrees. 2. Avoid crossing your legs or ankles while standing or lying. 3. Sit with your feet placed 6 inches apart. 4. When sitting, keep your knees below your hips. Sit on a firm surface, avoid deep, soft chairs and couches. Use an elevated toilet seat in the bathroom. 5. Don't bend over at the waist. Use a long handled shoehorn and a sock aid to help you put on your shoes and socks. A dining services director can help you lemon picker objects that are too high or too low to reach. 6. Keep car riding to a minimum for at least one month after surgery. B. Your balance may be shaky for a while. Use crutches or a walker until directed by your doctor. C. Use hand rails when walking on stairs. D. Wear low heeled shoes with non-slip soles. E. Be sure that your floors are free of things that could trip you - throw rugs, electrical cords, small objects. Avoid wet and waxed floors, especially with crutches and canes. F. Try to walk several times a day with rest periods between. G. Continue with all the exercises taught to you in the hospital. Again, make walking a part of your daily routine. SPECIAL CARE INSTRUCTIONS: VERY IMPORTANT TO READ AND REVIEW A. You may still be at risk for phlebitis and blood clots. 1. Wear surgical stockings (ANGELICA hose) for 2 weeks after surgery to improve circulation and reduce swelling. 2. Take Aspirin 81mg twice daily for 4 weeks or as directed by your doctor. This is your blood thinner. 3. High risk patients may be prescribed a stronger blood thinner if necessary. 4. If you are on Coumadin normally, your family doctor/information services tech should monitor your blood work. Expect a phone call the day of or the day after bloodwork is drawn to adjust your dosage. B. You must take antibiotics before having dental work, bladder, bowel and other surgery. Your doctor will provide you with a permanent card to carry describing precautions. C. Call [facility] if you have a fever, redness or swelling around the incision, cloudy drainage from incision, or sudden increase in pain in your hip, not relieved by your regular pain medication. D. Please call the office at if you have any concerns or questions about your operation or recovery. * YOU MAY SHOWER, NO TUB BATHS UNTIL CLEARED BY YOUR DOCTOR. * WEAR ANGELICA HOSE 20 HOURS PER DAY FOR 2 WEEKS. * YOU SHOULD USE A WALKER OR CRUTCHES FOR 2-4 WEEKS. THIS WILL HELP PREVENT STRAIN ON YOUR HIP MUSCLE AND ALLOW IT TO HEAL PROPERLY. YOU MAY WEAN TO A CANE TOLERATED. * MOST PATIENTS WILL HAVE HOME NURSING FOR THERAPY. IF YOU DECIDE TO DO OUTPATIENT PHYSICAL THERAPY, PLEASE SCHEDULE THIS 3 TIMES PER WEEK. *KEVIN incisional vac is a special dressing covering your incision. This dressing provides a sterile dry environment while you are healing. The dressing is to be left in place for 7 days post-operatively. Your home nurse or surgeon will remove. If you develop any redness or blisters or have any questions notify your surgeon immediately. FOLLOW UP VISIT: If appointment is not already scheduled: Please call [facility] to make a follow-up appointment for 2 weeks after your surgery at . Pending Studies at Discharge: No Stand-Alone Forms: My [employer]ach[employer], Smoking Cessation Medications and DC Order Prescriptions: New hydrocodone-acetaminophen 5-325 mg Tablet 1 tab PO Q6H MDD 4 PRN (Reason: pain) Qty: 30 RF: 0 aspirin 81 mg Tablet,Delayed Release (Dr/Ec) 81 mg PO BID Qty: 56 RF: 0 sennosides [Senokot] 8.6 mg Tablet 17.2 mg PO HS PRN (Reason: constipation) Qty: 30 RF: 0 Continued pramipexole [Mirapex] 0.125 mg tablet 0.125 mg PO QPM Qty: 90 RF: 1 zolpidem 10 mg tablet 10 mg PO HS PRN (Reason: insomnia) Qty: 30 RF: 1 turmeric root extract 500 mg capsule 500 mg PO QAM RF: 0 buspirone 5 mg tablet 10 mg PO DAILY PRN (Reason: Anxiety) RF: 0 alprazolam [Xanax] 0.25 mg tablet See Rx Instructions PO DAILY PRN (Reason: anxiety) Qty: 10 RF: 0 diclofenac sodium [Voltaren Arthritis Pain] 1 % gel 2 g topical QID RF: 0 amlodipine 2.5 mg tablet 2.5 mg PO HS RF: 0 losartan-hydrochlorothiazide 100-25 mg tablet 1 tab PO QAM RF: 0 cholecalciferol (vitamin D3) 1,000 unit capsule 1,000 units PO QPM RF: 0 duloxetine [Cymbalta] 20 mg Capsule,Delayed Release(Dr/Ec) 20 mg PO QPM PRN (Reason: Anxiety) RF: 0 [place] Liquid Otc 1 tbsp PO HS RF: 0 Salonpas 3.1-10-6 % Adhesive Patch,Medicated 1 patch TOPICAL BID PRN (Reason: Pain) RF: 0 Discontinued acetaminophen [Tylenol Arthritis] 650 mg Tablet Extended Release 650 - 1,300 mg PO Q12H PRN (Reason: Pain) RF: 0 tramadol 50 mg tablet 50 mg PO Q6H PRN (Reason: Pain) RF: 0 Discharge Orders: Discharge Order (Routine); Ordered 11/01/20 Ordered By: Jordan Healy Admission Data Admit Date/Time: 10/31/20 13:57 Attending Provider: Jordan Healy Admit Provider: Jordan Healy Primary Care Provider: Joseluis Garner Other Interventions: Discharge Summary Assessment (RN) Last Done: 11/01/20 09:37
== END 2020-11-01 14:46 | disposition home health service (06) | DRG 470 ==
LOC: 3N 09:16 → ASU 09:16 → OBSVTOIN 13:57 → 3N 17:08